=== PATIENT | male | born 1995 | race Caucasian/White ===

== ENCOUNTER 2025-04-26 14:50 | Emergency (ER) | payer MEDICAID ==
[~2025-04-26] VITALS: Ht 182.9 cm; Wt 95.9 kg
[2025-04-26 16:07] LABS: PLATELET COUNT (AUTO) 211 K/uL (150-450); RED BLOOD CELL COUNT(AUTO) 5.36 MIL/uL (4.50-5.90); RED CELL DISTRIBUTION WIDTH 13.7 % (11.5-14.5); WHITE BLOOD COUNT (AUTO) 13.7 K/uL (4.5-11.0)
[2025-04-26 16:20] LABS: PLATELET MORPHOLOGY COMMENT LARGE PLTS PRESENT; RBC MORPHOLOGY COMMENT NORMAL RBC MORPH
[2025-04-26 16:23] LABS: CALCIUM, TOTAL 9.1 mg/dL (8.8-10.5); CREATININE 1.25 mg/dL (0.60-1.30); GLOMERULAR FILTR. RATE CALC > 60 mL/min (>60); GLUCOSE,RANDOM 139 mg/dL (70-110); SODIUM SERUM 138 mmol/L (136-145); UREA NITROGEN, BLOOD 10 mg/dL (7-18)
[2025-04-26 16:41] LABS: ASPARTATE AMINOTRANSFERASE 18.0 U/L (15-37); TOTAL PROTEIN, SERUM 7.8 g/dL (6.4-8.2)
[2025-04-26] MEDS: ONDANSETRON HCL 4 MG/2 ML VIAL IVP ONE (16:43)
[2025-04-26] MEDS: SODIUM CHLORIDE 0.9% 1,000 ML IV ONE ×2 (16:43→18:10)
[2025-04-26] MEDS: MORPHINE SULFATE 4 MG/ML VIAL IVP ONE (16:43)
[2025-04-26] MEDS: KETOROLAC TROMETHAMINE 30 MG/ML VIAL IVP ONE (18:10)
[2025-04-26 18:54] LABS: APPEARANCE,URINE HAZY (CLEAR); GLUCOSE, URINE (UA) NEGATIVE (NEGATIVE); LEUKOCYTE ESTERASE ,URINE NEGATIVE (NEGATIVE); NITRATE,URINE NEGATIVE (NEGATIVE); OCCULT BLOOD,URINE LARGE (NEGATIVE); SPECIFIC GRAVITIY, URINE 1.030 (1.003-1.030)
[2025-04-26 19:12] LABS: SQUAMOUS EPITHELIAL CELL,UR Few /LPF (None Seen)
[2025-04-26] MEDS ORDERED: IBUP-1554 PO (19:14)
[2025-04-26] MEDS ORDERED: ONDA-104 PO (19:14)
[2025-04-26] MEDS ORDERED: TAMS0.4C94 PO (19:14)
[2025-04-26] MEDS ORDERED: HYDR-4062 PO (19:14)
[2025-04-26] MEDS: HYDROCODONE/ACETAMINOPHEN 5-325 MG TABLET PO ONE (19:30)
[2025-04-26 19:40] VITALS: BP 129/77; PULSE 78; RESP 16; TEMP 97.3; O2SAT 99
== END 2025-04-26 19:50 | disposition home or self-care (01) ==
LOC: EMS 14:50
DX: N20.9 Urinary calculus, unspecified (principal); R10.9 Unspecified abdominal pain; Z79.899 Other long term (current) drug therapy
CPT/HCPCS: 99285; 74176; 96374; 96375; 80048; 80076; 81001; 83690; 85025; 36415; J1885; J2270; J2405; J7030